=== PATIENT | female | born 1995 ===

== ENCOUNTER 2017-08-10 23:25 | Emergency (ER) | payer OTHER ==
[~2017-08-10] VITALS: Ht 157.5 cm; Wt 90.8 kg
[2017-08-10 23:34] VITALS: TEMP 36.9; Ht 157.5 cm; Wt 90.8 kg
[2017-08-11] MEDS ORDERED: XYLOCAINE 1%/SOD BICARB 20 ML VIAL INFIL ONE
[2017-08-11] MEDS ORDERED: ALPR0.25 PO (00:18)
[2017-08-11] MEDS ORDERED: AMPH10TA2 PO (00:18)
[2017-08-11] MEDS ORDERED: VILA1TAB PO (00:18)
[2017-08-11] MEDS ORDERED: AMPH30CA3 PO (00:18)
[2017-08-11 00:41] VITALS: BP 126/72; PULSE 74; O2SAT 98
--- NOTE | 2017-08-11 01:33 | EMERGENCY ROOM VISIT NOTE ---
History First contact with patient: 23:41 Chief Complaint: LACERATION/CUT (SUT/DERMABOND) Stated Complaint: FALL,BUSTED LIP Nursing Triage Summary: pt states she woke up and tripped and fell onto kitchen floor hitting her face, lac to right upper lip History of Present Illness The patient is a 21 year old female who presents to the Emergency Room with complaints of fall that occurred at home. The patient states that she was thirsty tonight, and walked into her kitchen to get a drink. She slipped, fell forward, and struck her face on the floor. She has a laceration to the right upper lip. She has a small chip in her right upper incisor. The patient did not lose consciousness and does not report additional injury. She states that she is up-to-date on her tetanus. She is without significant head, neck, face, or jaw pain. She does not report other injury. She rates her discomfort a 2/ 10. Review of Systems More than 10 systems were reviewed and otherwise negative with the exception of history of present illness. Past Medical/Surgical History History of anxiety Family History No pertinent family history Social History Smoking Status: Never Smoker Occupation Status: [employer] student Current/Historical Medications Scheduled Amphetamine-Dextroamphetamine 10MG (Adderall 10MG), 10 MG PO DAILY Vilazodone Hcl (Viibryd), 1 TAB PO DAILY Scheduled PRN Alprazolam (Xanax), 0.25 MG PO DAILY PRN for Anxiety Amphetamine-Dextroamphetamine 30MG (Adderall Xr 30MG), 30 MG PO DAILY PRN for ADHD Physical Exam Vital Signs Date Time Temp Pulse Resp B/P (MAP) Pulse Ox O2 Delivery O2 Flow Rate FiO2 08/11/17 00:41 74 16 126/72 98 08/10/17 23:34 36.9 102 18 130/83 99 Room Air Physical Exam VITALS: Vitals are noted on the nurse's note and reviewed by myself. Vital signs stable. GENERAL: Well-developed, well-nourished, female, who is in no acute distress and resting comfortably. Patient is cooperative with the examination. HEAD: Normocephalic atraumatic. EARS: External ear normal. External auditory canals clear, tympanic membranes pearly lombardo without erythema or effusion bilaterally. EYES: Pupils equal round and reactive to light and accommodation. Conjunctivae without injection, sclerae without icterus. Extraocular movements intact. NOSE: Patent, turbinates without inflammation or discharge. MOUTH: Mucous membranes moist. There is a submillimeter chip to the inferior lateral right upper incisor. Dentition otherwise appears intact. There is a C- shaped laceration to the right upper lip. This wound does gape and will require repair. The laceration does not cross the vermilion border. The patient is without jaw/mandibular tenderness. NECK: Supple without nuchal rigidity. No lymphadenopathy. No thyromegaly. Cervical spine is nontender. HEART: Regular rate and rhythm without murmurs gallops or rubs. LUNGS: Clear to auscultation bilaterally without wheezes, rales or rhonchi. No retractions or accessory muscle use. Medical Decision & Procedures Procedure Laceration repair. Patient elects to have their laceration repaired. Verbal consent was obtained to perform the procedure. There is an abundance of materials available for the procedure. Patient is not allergic to latex. Using sterile technique the wound was cleaned with Betadine. The area was sterilely draped. 2 ml of 1% buffered lidocaine was used to anesthetize the lip laceration. Once the patient was anesthetized, the wound was copiously irrigated under pressure with sterile saline. The wound was explored and there were no deep structures injured such as tendons, bone, or significant blood vessels. The laceration was repaired using 4 simple interrupted 6-0 Vicryl sutures with the wound edges being well approximated. Hemostasis was achieved. The area was cleaned with sterile saline and dressed with bacitracin ointment and bandage. Patient tolerated the procedure well without complications. Blood loss was negligible. ED Course Physical exam and history were performed. Nursing notes, EMR, and Medication List were personally reviewed. Patient appears to have fallen and suffered injury to her lip and tooth. The patient's laceration was repaired as above and she tolerated the procedure well. The patient does have a small chip to the right upper incisor and will follow with dentist. The chip was not identified within the oropharynx. The patient does not have other significant injury. She will be treated conservatively with [id number] analgesics. She was given wound care instructions and otherwise invited back to the ER with any new, worsening, or concerning symptoms. The chart was completed utilizing [employer] Voice Recognition Software. Grammatical errors, random word insertions, pronoun errors, and incomplete sentences are an occasional consequence of this system due to software limitations, ambient noise, and hardware issues. Any formal questions or concerns about the content, text, or information contained within the body of this dictation should be directly addressed to the provider for clarification. . Medical Decision Differential diagnosis includes: Is not limited to: Mechanical fall, laceration , abrasion, foreign body, sprain, strain, fracture, dental injury, Impression Primary Impression: Fall Additional Impressions: Dental injury Lip laceration Departure Information Dispostion Home / Self-Care Condition GOOD Forms HOME CARE DOCUMENTATION FORM, IMPORTANT VISIT INFORMATION Patient Instructions [facility] Additional Instructions You were seen and evaluated today on an emergency basis only. This is not a substitute for, or an effort to provide, complete comprehensive medical care. It is not possible to recognize and treat all injuries or illnesses in a single emergency department visit. For this reason it is recommended that you followup with your dentist for ongoing care and evaluation. Keep wound clean and dry. Do not allow any crusting or dried blood to accumulate on sutures. If this occurs, use a mild soap/water on a Q-tip to clean the wound. Do not use Peroxide to clean the wound as this can delay healing You may bathe and shower as normal, but DO NOT SOAK the wound. Sutures are dissolvable. They should stay in place for at least 5 days. Return for any signs of infection, increasing redness, swelling, or drainage. You are welcome to return to the emergency department anytime with new, worsening, or concerning symptoms. Problem Qualifiers
--- NOTE | 2017-09-05 07:34 | EDITING REQUIRED CODING QUERY ---
LENGTH OF LACERATION To promote full compliance with coding requirements relating to patient care, physician participation is requested in all cases of maintenance supervisor mechanical uncertainty. Please assist us with the question(s) below: Please document the length of the (UPPER LIP) laceration. Please type the length in cm within the parenthesis () below. (UPPER LIP) laceration is (2.6 ) cm. Thank you Elvi Barboza
== END 2017-08-11 00:41 | disposition home or self-care (01) ==
LOC: C.EDB 23:27
DX: S01.511A Laceration without foreign body of lip, initial encounter (principal); S09.8XXA Other specified injuries of head, initial encounter; F41.9 Anxiety disorder, unspecified; Z79.899 Other long term (current) drug therapy; W01.0XXA Fall on same level from slipping, tripping and stumbling without subsequent striking against object, initial encounter